=== PATIENT | male | born 1970 | race Caucasian/White ===

== ENCOUNTER 2020-09-17 19:18 | Emergency (ER) | payer BC ==
[2020-09-17 19:30] VITALS: BP 142/99
[2020-09-17] MEDS ORDERED: CEPH500T PO (19:42)
[2020-09-17] MEDS ORDERED: EPIN0.3P3 IJ (19:43)
--- NOTE | 2020-09-17 19:43 | ED General ---
General Stated Complaint: LEFT MIDDLE FINGER INJURY Source of Information: Patient Exam Limitations: No Limitations History of Present Illness Date Seen by Provider: September 17, 2020 Time Seen by Provider: 19:39 Initial Comments To ER with reports of a puncture wound to the pad of the middle phalanx middle finger left hand that occurred just prior to arrival. Tetanus is not up-to-date. This occurred when he was trying to hang up some decor on his fence at home using a drill. Timing/Duration: 1-2 Days Severity: Moderate Associated Systoms: Denies Symptoms Allergies and Home Medications Allergies Coded Allergies: Penicillins (Verified Allergy, Unknown, 09/17/20) bee venom protein (honey bee) (Verified Allergy, Unknown, 09/17/20) Home Medications Cephalexin 500 Mg Tablet, 500 MG PO TID Prescribed by: COLLIN TALAVERA on 09/17/201941 Epinephrine 0.3 Mg/0.3 Ml Auto.injct, 0.3 MG IJ PRN PRN for anaphylaxis Prescribed by: COLLIN TALAVERA on 09/17/201942 Patient Home Medication List Home Medication List Reviewed: Yes Review of Systems Review of Systems Constitutional: see HPI EENTM: see HPI Respiratory: no symptoms reported Cardiovascular: no symptoms reported Genitourinary: no symptoms reported Musculoskeletal: see HPI Skin: no symptoms reported Psychiatric/Neurological: No Symptoms Reported Hematologic/Lymphatic: No Symptoms Reported Immunological/Allergic: no symptoms reported Physical Exam Vital Signs Capillary Refill : Height, Weight, BMI Height: '" Weight: lbs. oz. kg; BMI Method: General Appearance: No Apparent Distress, WD/WN Eyes: Bilateral Eye Normal Inspection, Bilateral Eye PERRL HEENT: PERRL/EOMI Neck: Full Range of Motion, Normal Inspection Respiratory: Normal Breath Sounds, No Respiratory Distress Extremity: Normal Capillary Refill, Normal Inspection, Other (Bleeding puncture wound to the radial side of the pad of the middle phalanx middle finger left hand. He states it hit the bone. He does not want x-rays. He is able to flex the finger at the PIP and DIP joint.) Neurologic/Psychiatric: Alert, Oriented x3 Skin: Normal Color, Warm/Dry Progress/Results/Core Measures Suspected Sepsis SIRS Temperature: Pulse: Respiratory Rate: Blood Pressure / Mean: Results/Orders My Orders Orders - COLLIN TALAVERA APRN Finger(S) (09/17/20 19:37) Cephalexin Capsule (Keflex Capsule) (09/17/20 19:45) Dipht,Pertuss(Acell),Tet Adult (Boostrix (09/17/20 19:45) Vital Signs/I&O Capillary Refill : Departure Communication (Admissions) Patient also states that he is out of his EpiPen and would like a refill for that.this was scrubbed with chlorhexidine/saline rewrapped with a Band-Aid Impression Primary Impression: Puncture wound Disposition: HOME, SELF-CARE Condition: Stable Departure-Patient Inst. Decision time for Depature: 19:41 Referrals: NO,LOCAL PHYSICIAN (PCP) Primary Care Physician Patient Instructions: Wound Care Add. Discharge Instructions: 1. Clean daily with soap and water. Antibiotics as directed. Change the dressing as needed. Return to ER for any concerns. Scripts Epinephrine (Epipen 2-Can) 0.3 Mg/0.3 Ml Auto.injct 0.3 MG IJ PRN PRN for anaphylaxis, #1 EA Prov: COLLIN TALAVERA [employer] 09/17/20 Cephalexin (Cephalexin) 500 Mg Tablet 500 MG PO TID, #10 TAB Prov: COLLIN TALAVERA [employer]ENT[employer] 09/17/20 COLLIN TALAVERA [employer]PRESENT[employer]IVE September 17, 2020 19:43
[2020-09-17] MEDS ORDERED: CEPHALEXIN 250 MG (KEFLEX) CAP PO SCH (19:45)
[2020-09-17] MEDS ORDERED: TETANUS,DIPTH,PERTUSS P/F (BOOSTRIX) 0.5 ML VIAL IM ONE (19:45)
== END 2020-09-17 19:57 | disposition home or self-care (01) ==
LOC: EDUNIT# 19:18 → ER 19:20
DX: S61.233A Puncture wound without foreign body of left middle finger without damage to nail, initial encounter (principal); Z23 Encounter for immunization; W29.8XXA Contact with other powered hand tools and household machinery, initial encounter; Y92.009 Unspecified place in unspecified non-institutional (private) residence as the place of occurrence of the external cause
CPT/HCPCS: 90715